=== PATIENT | male | born 1975 | race Caucasian/White ===

== ENCOUNTER 2016-11-08 11:30 | Emergency (ER) | payer OTHER ==
[2016-11-08] MEDS ORDERED: SODIUM CHLORIDE 1,000 ML IV STA (12:00)
[2016-11-08] MEDS ORDERED: MAG HYDROX/AL HYDROX/SIMETH 30 ML UNIT-DOSE CUP PO ONE (12:00)
[2016-11-08] MEDS ORDERED: FAMOTIDINE 20 MG/50 ML IVPB 50 ML IVPB ONE ×2 (12:00→12:38)
[2016-11-08] MEDS ORDERED: ACETAMINOPHEN 325 MG TABLET (FP) PO ONE (12:00)
--- NOTE | 2016-11-08 12:05 | PDOC ---
History of Present Illness - General Chief Complaint: Rectal Bleed Stated Complaint: BLOOD IN STOOL Time Seen by Provider: 11/08/16 11:51 History Source: Patient Exam Limitations: No Limitations - History of Present Illness Initial Comments: 11/08/16 12:01 41-year-old male with history of hypertension, GERD, obesity presents to the ED for three days of multiple episodes of diarrhea. Patient reports intermittent abdominal cramping with the diarrhea but denies any fevers, nausea, vomiting. Denies sick contacts or recent travels or bad foods. Patient states that today, he had one episode of bright red blood on wiping and in toilet bowl after several bowel movements. He states that the were painless. He denies family history of irritable bowel disease but reports that he does have a relative with irritable bowel syndrome. Patient was concerned and he saw blood in his rectum and came into the ED. Past History - Past Medical History Allergies/Adverse Reactions: Allergies Allergy/AdvReac Type Severity Reaction Status Date / Time No Known Allergies Allergy Verified 11/08/16 13:15 Home Medications: Ambulatory Orders Aspirin [ASA -] 81 mg PO DAILY 01/08/15 Olmesartan Medoxomil [Benicar -] 20 mg PO DAILY 01/08/15 Pantoprazole Sodium [Protonix] 40 mg PO DAILY #7 tablet. 01/08/15 Ciprofloxacin [Cipro -] 500 mg PO Q12H #20 tablet 11/08/16 Escitalopram Oxalate [Lexapro -] 10 mg PO DAILY 11/08/16 Hydrochlorothiazide 25 mg PO DAILY 11/08/16 Metronidazole [Flagyl -] 500 mg PO Q8H #30 tablet 11/08/16 HTN: Yes - Psycho/Social/Smoking Cessation Hx Anxiety: No Suicidal Ideation: No Smoking History: Never smoked Hx Alcohol Use: Yes Drug/Substance Use Hx: No Substance Use Type: Alcohol Review of Systems - Review of Systems Able to Perform ROS?: Yes Comments:: 11/08/16 12:02 GENERAL/CONSTITUTIONAL: No fever, weakness. HEAD, EYES, EARS, NOSE AND THROAT: No change in vision. No ear pain or discharge. No sore throat. CARDIOVASCULAR: No chest pain or shortness of breath. RESPIRATORY: No cough, wheezing, or hemoptysis. GASTROINTESTINAL: + abdominal pain, diarrhea. No nausea, vomiting or decreased PO intolerance. +Blood per rectum. GENITOURINARY: No dysuria, frequency, or change in urination. MUSCULOSKELETAL: No joint or muscle swelling or pain. No neck or back pain. SKIN: No rash NEUROLOGIC: No headache, vertigo, loss of consciousness, or change in strength/ sensation. ENDOCRINE: No increased thirst. No abnormal weight change. HEMATOLOGIC/LYMPHATIC: No anemia, easy bleeding, or history of blood clots. ALLERGIC/IMMUNOLOGIC: No hives or skin allergy. *Physical Exam - Physical Exam Comments: 11/08/16 12:03 GENERAL: Awake, alert, and fully oriented, in no acute distress. HEAD: No signs of trauma EYES: PERRLA, EOMI, sclera anicteric, conjunctiva clear ENT: Auricles normal inspection, hearing grossly normal, nares patent, oropharynx clear without exudates. NECK: Normal ROM, supple, no lymphadenopathy, JVD, or masses LUNGS: Breath sounds equal, clear to auscultation bilaterally. No wheezes, and no crackles HEART: Regular rate and rhythm, normal S1 and S2, no murmurs, rubs or gallops ABDOMEN: Soft, nontender, normoactive bowel sounds. No guarding, no rebound. No masses EXTREMITIES: Normal range of motion, no edema. No clubbing or cyanosis. No cords, erythema, or tenderness NEUROLOGICAL: Cranial nerves II through XII grossly intact. Normal speech, normal gait SKIN: Warm, Dry, normal turgor, no rashes or lesions noted. RECTAL: No fissures, tears, or external hemorrhoids. Brown stool. ED Treatment Course - LABORATORY CBC & Chemistry Diagram: 11/08/16 13:05 11/08/16 13:05 Medical Decision Making - Medical Decision Making 11/08/16 12:04 I suspect the patient is most likely having gastroenteritis with potentially internal hemorrhoids. Patient has no abdominal pain at this time. However, differential includes colitis, diverticulosis. We'll send a stool occult and blood work. Give IV fluids and reassess. Ultimately, the patient will need GI follow-up for outpatient colonoscopy. If patient develops severe abdominal pain , we'll consider CT scan. However, given no abdominal pain or tenderness at this time, we'll defer on CT. 11/08/16 16:20 Patient had 2 episodes of bloody mucus in stool witnessed by me. Decision was made to CAT scan the patient. CAT scan head and pelvis reviewed. No acute findings. CBC, BMP 11/08/16 13:05 11/08/16 13:05 CMP Sodium 136 mmol/L (136-145) 11/08/16 13:05 Potassium 4.0 mmol/L (3.5-5.1) 11/08/16 13:05 Chloride 100 mmol/L (98-107) 11/08/16 13:05 Carbon Dioxide 28 mmol/L (22-28) 11/08/16 13:05 Anion Gap 8 (8-16) 11/08/16 13:05 BUN 20 mg/dl (7-18) H D 11/08/16 13:05 Creatinine 1.0 mg/dl (0.6-1.3) 11/08/16 13:05 Creat Clearance w eGFR > 60 (>60) 11/08/16 13:05 Random Glucose 113 mg/dl (74-106) H 11/08/16 13:05 Calcium 9.5 mg/dl (8.4-10.2) 11/08/16 13:05 Phosphorus 2.1 mg/dl (2.5-4.6) L 11/08/16 13:05 Magnesium 1.7 mg/dL (1.8-2.4) L 11/08/16 13:05 Total Bilirubin 0.9 mg/dl (0.2-1.0) D 11/08/16 13:05 AST 32 U/L (10-42) D 11/08/16 13:05 ALT 37 U/L (10-40) 11/08/16 13:05 Alkaline Phosphatase 49 U/L (32-92) 11/08/16 13:05 Total Protein 7.4 g/dl (6.4-8.3) 11/08/16 13:05 Albumin 4.6 g/dl (3.5-5.0) 11/08/16 13:05 Urine Test Results Urine Color Yellow 11/08/16 12:00 Urine Appearance Clear 11/08/16 12:00 Urine pH 5.5 (4.5-8) 11/08/16 12:00 Ur Specific [place] 1.025 (1.005-1.025) 11/08/16 12:00 Urine Protein 1+ (NEGATIVE) H 11/08/16 12:00 Urine Glucose (UA) Negative (NEGATIVE) 11/08/16 12:00 Urine Ketones Negative (NEGATIVE) 11/08/16 12:00 Urine Blood Trace-lysed (NEGATIVE) 11/08/16 12:00 Urine Nitrite Negative (NEGATIVE) 11/08/16 12:00 Urine Bilirubin Negative (NEGATIVE) 11/08/16 12:00 Ur Leukocyte Esterase Negative (NEGATIVE) 11/08/16 12:00 Stool occult positive. Case was discussed with barrel filler head Dr. Brown regarding the details of the case. We will send stool culture and have the patient initiated on ciprofloxacin and Flagyl. Patient will be instructed to follow-up with their GI service. Patient verbalizes understanding agrees with plan. I discussed the physical exam findings, ancillary test results and final diagnoses with the patient. I answered all of the patient's questions. The patient was satisfied with the care received and felt comfortable with the discharge plan and treatment plan. The patient will call their primary care physician within 24 hours to arrange follow-up and will return to the Emergency Department with any new, persistant or worsening symptoms. *DC/Admit/Observation/Transfer Diagnosis at time of Disposition: Bloody stool - Discharge Dispostion Disposition: HOME Condition at time of disposition: Stable Admit: No - Prescriptions Prescriptions: Ciprofloxacin [Cipro -] 500 mg PO Q12H #20 tablet Metronidazole [Flagyl -] 500 mg PO Q8H #30 tablet - Referrals Referrals: Nena Madden MD [Staff Physician] - - Patient Instructions Printed Discharge Instructions: DI for Rectal Bleeding Additional Instructions: Please take the 2 antibiotics, ciprofloxacin and Flagyl as prescribed for next 10 days. Take 650 mg of oral every 4 hours or 600 mg of ibuprofen every 6 hours needed for pain. It is very important that you follow-up with the barrel filler head for evaluation for potential colonoscopy. Please call to schedule appointment.
[2016-11-08 12:22] LABS: PH,URINE 5.5 (4.5-8); URINE APPEARANCE Clear; URINE BILIRUBIN Negative (NEGATIVE); URINE BLOOD Trace-lysed (NEGATIVE); URINE GLUCOSE (UA) Negative (NEGATIVE); URINE KETONE Negative (NEGATIVE); URINE LEUK ESTERASE Negative (NEGATIVE); URINE NITRITE Negative (NEGATIVE); URINE UROBILINOGEN 0.2 (0.2-1.0)
[2016-11-08 12:23] LABS: URINE COLOR YELLOW; URINE PROTEIN 1+ (NEGATIVE)
[2016-11-08] MEDS ORDERED: MAG HYDROX/AL HYDROX/SIMETH 30 ML UNIT-DOSE CUP ONE (12:38)
[2016-11-08] MEDS ORDERED: ACETAMINOPHEN 325 MG TABLET (FP) ONE (12:38)
[2016-11-08 13:31] VITALS: BP 143/83; PULSE 103; TEMP 98.1; BMI 38.5
[2016-11-08 13:39] LABS: BASOPHIL 0.8 % (0-2.0); EOSINOPHIL 0.8 % (0-4.5); MCH 28.7 pg (25.7-33.7); MCHC 33.6 g/dl (32.0-35.9); MEAN CELL VOLUME 85.4 fl (80-96); MEAN PLT VOLUME 9.3 fl (7.5-11.1); NEUTROPHILS 74.2 % (42.8-82.8); PLATELET COUNT 212 K/MM3 (134-434); RDW 12.2 % (11.9-15.9); WHITE BLOOD COUNT 10.8 K/mm3 (4.0-10.8)
[2016-11-08 13:45] LABS: ALBUMIN 4.6 g/dl (3.5-5.0); ALK PHOS 49 U/L (32-92); ANION GAP 8 (8-16); BILIRUBIN,TOTAL 0.9 mg/dl (0.2-1.0); CALCIUM 9.5 mg/dl (8.4-10.2); CO2 28 mmol/L (22-28); GLUCOSE,RANDOM 113 mg/dl (74-106); MAGNESIUM 1.7 mg/dL (1.8-2.4); PHOSPHOROUS 2.1 mg/dl (2.5-4.6); SGOT/AST 32 U/L (10-42); SGPT/ALT 37 U/L (10-40); TOT PROT 7.4 g/dl (6.4-8.3)
[2016-11-08] MEDS ORDERED: MAGNESIUM SULF 50% (8.12 MEQ/2 ML-1 GM VIAL) IVPB ONE (14:14)
[2016-11-08] MEDS ORDERED: MAGNESIUM SULF 50% (8.12 MEQ/2 ML-1 GM VIAL) ONE (14:45)
[2016-11-08] MEDS ORDERED: CIPROFLOXACIN 500 MG TABLET (RESTRICTED TO ID) PO ONE (16:20)
[2016-11-08] MEDS ORDERED: metroNIDAZOLE 250 MG TABLET PO ONE (16:20)
[2016-11-08] MEDS ORDERED: metroNIDAZOLE 250 MG TABLET ONE (16:22)
[2016-11-08] MEDS ORDERED: CIPROFLOXACIN 250 MG TABLET (RESTRICTED TO ID) PO ONE (16:22)
[2016-11-08 20:57] LABS: URINE RBC 0-2 /hpf (0-3); URINE WBC 0-1 (3-5)
[2016-11-08 20:58] LABS: URINE BACTERIA FEW /hpf (NEGATIVE)
== END 2016-11-08 16:50 | disposition home or self-care (01) ==
LOC: FER 11:30
PROC: 3E033GC Introduction of Other Therapeutic Substance into Peripheral Vein, Percutaneous Approach (ICD-10-PCS; principal; 2016-11-08)
PROC: 3E0337Z Introduction of Electrolytic and Water Balance Substance into Peripheral Vein, Percutaneous Approach (ICD-10-PCS; 2016-11-08)
DX: K92.1 Melena (principal); I10 Essential (primary) hypertension; K21.9 Gastro-esophageal reflux disease without esophagitis; E66.9 Obesity, unspecified; Z68.38 Body mass index [BMI] 38.0-38.9, adult; Z79.01 Long term (current) use of anticoagulants
CPT/HCPCS: 36415; 74177-TC; 80053; 81003; 81015; 82272; 83735; 84100; 85025; 87045; 87046; 99282-25

== ENCOUNTER 2018-11-24 23:37 | Emergency (ER) | payer OTHER | END 2018-11-25 00:13 | disposition home or self-care (01) | LOC: FER 11-25 00:13 ==

== ENCOUNTER 2023-08-30 10:51 | Emergency (ER) | payer OTHER ==
[2023-08-30 11:13] VITALS: BP 151/59; PULSE 102; RESP 20; TEMP 98.1; BMI 40.4
[2023-08-30] MEDS ORDERED: predniSONE 20 MG TABLET (UD) PO ONE ×2 (11:48)
[2023-08-30] MEDS ORDERED: predniSONE 20 MG TABLET (UD) ONE ×2 (11:50→12:17)
== END 2023-08-30 13:14 | disposition home or self-care (01) ==
LOC: FER 10:51
DX: M70.52 Other bursitis of knee, left knee (principal); M25.562 Pain in left knee
CPT/HCPCS: 73562-TC-LT-FY; 93971-TC; 99284-25